=== PATIENT | male | born 1985 | race Caucasian/White ===

== ENCOUNTER 2022-11-10 17:25 | Emergency (ER) | payer SELFPAY ==
[~2022-11-10] VITALS: Ht 175.3 cm; Wt 75.0 kg
[2022-11-10 17:34] VITALS: BP 146/89
[2022-11-10 21:10] LABS: BASOPHILS % 0.4 % (0.0-2.0); EOSINOPHILS % 0.6 % (0.0-5.0); HEMATOCRIT. 37.7 % (42.0-52.0); HEMOGLOBIN. 12.9 g/dL (14.0-18.0); LYMPHOCYTES % 14.7 % (20.0-50.0); MEAN CORPUSCULAR HEMOGLOBIN 33.2 pg (28.0-32.0); MEAN CORPUSCULAR VOLUME 97.2 fL (80.0-94.0); MEAN PLATELET VOLUME 7.7 fl (7.4-10.4); MONOCYTES % 8.1 % (2.0-8.0); NEUTROPHILS % 76.2 % (40.0-76.0); PLATELET 243 x1000/uL (130-400); RED BLOOD CELL COUNT 3.88 mill/uL (4.7-6.1); RED CELL DISTRIBUTION WIDTH 14.1 % (11.6-14.6)
[2022-11-10 21:19] LABS: CHLORIDE 108 mEq/L (98-107)
[2022-11-10 21:29] LABS: ETHANOL BLOOD < 10 mg/dL
[2022-11-11 00:33] LABS: CLARITY URINE CLEAR (CLEAR); COLOR URINE YELLOW (YELLOW); KETONES URINE NEGATIVE (NEGATIVE); LEUKOCYTE ESTERASE URINE NEGATIVE (NEGATIVE); NITRITE URINE NEGATIVE (NEGATIVE); OCCULT BLOOD URINE NEGATIVE (NEGATIVE); PROTEIN URINE NEGATIVE (NEGATIVE); SPECIFIC GRAVITY URINE 1.022 (1.005-1.030)
[2022-11-11 01:01] LABS: *AMPHETAMINES SCREEN URINE NEGATIVE (NEGATIVE); *BARBITURATES SCREEN URINE NEGATIVE (NEGATIVE); *BENZODIAZEPINES SCREEN URINE NEGATIVE (NEGATIVE); *COCAINE SCREEN URINE NEGATIVE (NEGATIVE); CANNABINOID URINE SCREEN PRESUMTIVE POSITIVE (NEGATIVE); METHADONE URINE SCREEN NEGATIVE (NEGATIVE); OPIATES URINE SCREEN NEGATIVE (NEGATIVE); PHENCYCLIDINE URINE SCREEN NEGATIVE (NEGATIVE)
== END 2022-11-11 01:00 | disposition home or self-care (01) ==
LOC: ER 17:35 → EDBD 17:35 → ER 11-11 01:00
DX: M70.972 Unspecified soft tissue disorder related to use, overuse and pressure, left ankle and foot (principal); M70.971 Unspecified soft tissue disorder related to use, overuse and pressure, right ankle and foot; R46.2 Strange and inexplicable behavior; R03.0 Elevated blood-pressure reading, without diagnosis of hypertension
CPT/HCPCS: 36415; 73600; 73610; 73630; 80053; 80305; 80307; 80320; 80329; 81003; 82962; 85025; 99284; G0480

== ENCOUNTER 2022-11-26 19:10 | Emergency (ER) | payer SELFPAY ==
[~2022-11-26] VITALS: Ht 182.9 cm; Wt 92.0 kg
[2022-11-26 19:17] VITALS: BP 123/78
== END 2022-11-26 23:02 | disposition left against medical advice (07) ==
LOC: ER 19:10
DX: Z53.21 Procedure and treatment not carried out due to patient leaving prior to being seen by health care provider (principal)